=== PATIENT | female | born 1995 | race American Indian/Alaskan Native ===

== ENCOUNTER 2021-08-22 14:00 | Emergency (ER) | payer OTHER ==
[2021-08-22] MEDS ORDERED: ACETAMINOPHEN 325 MG TAB PO ONE (15:37)
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
[2021-08-22 16:58] LABS: HCG Qualitative,Urine Positive (Negative)
[2021-08-22 17:35] VITALS: BP 138/70
== END 2021-08-22 17:36 | disposition home or self-care (01) ==
LOC: ED 14:00
DX: O9A.211 Injury, poisoning and certain other consequences of external causes complicating pregnancy, first trimester (principal); O71.6 Obstetric damage to pelvic joints and ligaments; Z3A.00 Weeks of gestation of pregnancy not specified; V49.9XXA Car occupant (driver) (passenger) injured in unspecified traffic accident, initial encounter; W22.12XA Striking against or struck by front passenger side automobile airbag, initial encounter; Y93.89 Activity, other specified; Y92.89 Other specified places as the place of occurrence of the external cause; Y99.8 Other external cause status
CPT/HCPCS: 81025; 99283